=== PATIENT | female | born 1955 | race Caucasian/White ===

== ENCOUNTER 2016-09-04 08:03 | Day surgery (SDC) | payer MEDICARE ==
--- NOTE | ~2016-09-04 | EGD ---
EGD REPORT [facility] [address] [address] NAME: NAY TOMAS : [birth year] STATUS : [facility]#: [id number] AGE: 61 ADM/REG DATE : 09/04/16 MR#: [id number] REPORT SERV DATE: 09/11/16 DICTATED BY: DATE: REPORT STATUS : Draft TRANSCRIBED BY: [employer] DATE: 09/11/16 [facility] Patient Name: Nay Tomas Date of : 1955 Attending MD: MARILEE FROST MD Procedure Date No Time: 09/04/2016 Procedure: Flexible Sigmoidoscopy Indications: High risk colon cancer surveillance: Personal history of colon cancer, High risk colon cancer surveillance: Ulcerative colitis Referring MD: JOHN TOBIN Medicines: Monitored Anesthesia Care Complications: No immediate complications. Procedure: Pre-Anesthesia Assessment: - ASA Grade Assessment: II - A patient with mild systemic disease. After obtaining informed consent, the endoscope was passed under direct vision. Throughout the procedure, the patient's blood pressure, pulse, and oxygen saturations were monitored continuously. The GIF [id number] was introduced through the anus and advanced to 30 cm from the anal verge. The flexible sigmoidoscopy was accomplished without difficulty. The patient tolerated the procedure well. The quality of the bowel preparation was good. Findings: The perianal and digital rectal examinations were normal. Localized moderate inflammation characterized by erythema, friability, granularity, loss of vascularity and shallow ulcerations was found in the distal rectum. Biopsies were taken with a cold forceps for histology. No other significant abnormalities were identified in a careful examination of the remainder of the colon. There is no endoscopic evidence of mass or polyps in the rectum. Impression: - Localized moderate inflammation was found in the distal rectum secondary to proctitis. Biopsied. Recommendation: - Discharge patient to home. - Continue present medications. - Await pathology results. - Repeat flexible sigmoidoscopy in 1 year for surveillance. - Canasa suppository nightly if tolerated. EGD REPORT [facility] [address] [address] NAME: NAY TOMAS : [birth year] STATUS : [facility]#: [id number] AGE: 61 ADM/REG DATE : 09/04/16 MR#: [id number] REPORT SERV DATE: 09/11/16 DICTATED BY: DATE: REPORT STATUS : Draft TRANSCRIBED BY: [employer] DATE: 09/11/16 Procedure Code(s): --- Professional --- 23508, Sigmoidoscopy, flexible; with biopsy, single or multiple Diagnosis Code(s): --- Professional --- K62.89, Other specified diseases of anus and rectum Z85.038, Personal history of other malignant neoplasm of large intestine K51.90, Ulcerative colitis, unspecified, without complications CPT copyright 2013 [employer]. All rights reserved. The codes documented in this report are preliminary and upon courier review may be revised to meet current compliance requirements. MARILEE FROST MD 09/11/2016 1:19 PM This report has been signed electronically. Number of Addenda: 0 Note Initiated On: 09/04/2016 8:44 AM Scope Withdrawal Time 0 hours 0 minutes 0 seconds [address] [facility] [address] [place] [id number]
[~2016-09-04 08:03] MED LIST: ACIPHEX PO; AMB10 PO; AMB5 PO; AMIT10 PO; ASAB PO; BENTYL10 PO; CIP5 PO; EFFEX75 PO; FISH-EPA1000 MG PO; GAS-X80 MG PO; LIPITOR10 PO; LIPITOR20 PO; LOM PO; MOBIC15 MG PO; MULTIPLE VIT PO; OCUVITE PO; P10 PO; PREPARATION PR; QUESTRAN4 GM PO; WELCHOL 625 MG625 MG PO; ZOCOR20 PO
== END 2016-09-04 23:59 | disposition home or self-care (01) ==
LOC: DMU 08:03
PROVIDERS: Internal Medicine Gastroenterology
PROC: 0DBP8ZX Excision of Rectum, Via Natural or Artificial Opening Endoscopic, Diagnostic (ICD-10-PCS; principal; 2016-09-04 09:30)
DX: Z12.11 Encounter for screening for malignant neoplasm of colon (principal); K51.20 Ulcerative (chronic) proctitis without complications; K62.89 Other specified diseases of anus and rectum; K51.90 Ulcerative colitis, unspecified, without complications; Z79.899 Other long term (current) drug therapy; Z85.038 Personal history of other malignant neoplasm of large intestine; Z88.1 Allergy status to other antibiotic agents
CPT/HCPCS: 88305